=== PATIENT | female | born 1960 | race African-American/Black ===

== ENCOUNTER 2023-11-30 10:03 | Outpatient (CLI) | payer MEDICARE | END 2023-11-30 10:04 | disposition home or self-care (01) | LOC: BICMAMMO 10:03 | PROVIDERS: ATTEND Physician Assistant | DX: R92.8 Other abnormal and inconclusive findings on diagnostic imaging of breast (principal); N60.01 Solitary cyst of right breast | CPT/HCPCS: 76642; 77066; G0279 ==